=== PATIENT | female | born 1990 | race Caucasian/White ===

== ENCOUNTER 2024-01-30 08:33 | Emergency (ER) | payer OTHER, SELFPAY ==
[2024-01-30 08:38] VITALS: BP 112/69; PULSE 71; RESP 18; TEMP 36.1; O2SAT 100
[2024-01-30 08:50] LABS: BEDSIDEPREGUCG Negative
[2024-01-30 09:33] LABS: Color Urine Yellow (Yellow)
[2024-01-30 09:34] LABS: Add Urine Microscopic? NO; Appearance Urine Clear (Clear); Bilirubin Urine Negative (Negative); Blood Urine Negative (Negative); Glucose Urine UA Trace mg/dL (Negative); Ketones Urine Negative (Negative); Leukocyte Esterase Ur Negative LEU/UL (Negative); Nitrate Urine Negative (Negative); Protein Urine Negative (Negative); Urobilinogen Urine 0.2 mg/dL (<2.0)
--- NOTE | 2024-01-30 09:42 | ED.FEMALEGU ---
HPI - Female Genitourinary General Chief complaint: Urogenital-Female Stated complaint: UTI Time Seen by Provider: 01/30/24 08:59 Source: patient Mode of arrival: ambulatory Limitations: no limitations History of Present Illness HPI Narrative: This is a 33-year-old female who presents to the ED from [facility] for chief complaint of UTI symptoms. Reports symptoms started yesterday with urgency, burning. Some slight lower abdominal cramping noted as well. Denies vaginal symptoms worse concern for STD. States she has had UTIs in the past and this feels similar. denies any other medical history. Denies fevers, chills, nausea, vomiting, back pain or flank pain. Review of Systems Review of Systems: All systems as dictated in HPI Exam Narrative: GENERAL: Well-appearing, well-nourished, and in no acute distress. HEAD: Normocephalic, atraumatic. EYES: PERRLA and EOMI. ENT: Nares clear, no rhinorrhea or epistaxis. Mucous membranes moist. Oropharynx without tonsillar hypertrophy exudate or other lesions. NECK: Supple. No adenopathy or masses. CHEST: No respiratory distress. Clear to auscultation. No wheezes rales or rhonchi HEART: Regular rate and rhythm. No murmur heard. Normal peripheral pulses. ABDOMEN: Soft, nontender, nondistended, normal active bowel sounds. MSK: Normal range of motion. No edema. SKIN: Warm, dry, no rash. NEURO: Alert and oriented x4. No focal deficits. PSYCH: Normal mood and affect. Course Vital Signs Vital signs: Vital Signs Temperature 97 F L 01/30/24 08:38 Pulse Rate 71 01/30/24 08:38 Respiratory Rate 18 01/30/24 08:38 Blood Pressure 112/69 01/30/24 08:38 Pulse Oximetry 100 01/30/24 08:38 Oxygen Delivery Room Air 01/30/24 08:38 Temperature 97 F L 01/30/24 08:38 Pulse Rate 71 01/30/24 08:38 Respiratory Rate 18 01/30/24 08:38 Blood Pressure 112/69 01/30/24 08:38 Pulse Oximetry 100 01/30/24 08:38 Oxygen Delivery Room Air 01/30/24 08:38 MDM - Female Genitourinary MDM Narrative Medical decision making narrative: this is a 33-year-old female who presents to the ED for chief complaint of urinary burning and urgency. Vitals are normal. Exam is benign overall. No abdominal or flank tenderness. No fevers to indicate pyelonephritis. Urinalysis shows trace glucose but no other abnormal findings. Patient will be given azo for urinary symptom relief. Encouraged follow-up with PCP on this issue. She is understanding and agreeable with plan for discharge at this time. Return precautions given Lab Data Labs: Lab Results 01/30/24 01/30/24 Range/Units 08:42 08:48 Urine Color Yellow (Yellow) Urine Appearance Clear (Clear) Urine pH 7.0 (5.0-9.0) Ur Specific [place] 1.020 (1.001-1.035) Urine Protein Negative (Negative) mg/dL Urine Glucose (UA) Trace H (Negative) mg/dL Urine Ketones Negative (Negative) mg/dL Ur Blood (Man) Negative (Negative) Urine Nitrate Negative (Negative) Urine Bilirubin Negative (Negative) Urine Urobilinogen 0.2 (<2.0) mg/dL Leukocyte Esterase Rfl Negative (Negative) QING/UL POC Urine HCG, Qual Negative Discharge Plan Discharge Clinical Impression: Urinary urgency Patient Disposition: Home, Self-Care Condition: Stable Instructions: Antibiotic Form Additional Instructions: Your exam today is reassuring. No evidence of UTI on the urinalysis. Please take azo for relief and follow-up with PCP on this issue. If you have any new or worsening symptoms please return to the ER for further evaluation. Prescriptions: New phenazopyridine [Pyridium] 100 mg tablet 100 mg PO TID PRN (Reason: pain) Qty: 6 0RF Follow-up/Referrals: PHYSICIAN,PAPER COUNTER [Primary Care Provider] - Time of Disposition: 09:48
== END 2024-01-30 09:55 | disposition home or self-care (01) ==
PROVIDERS: Student in an Organized Health Care Education/Training Program; Emergency Provider Physician Assistant
DX: R39.15 Urgency of urination (principal)
CPT/HCPCS: 81003; 81025; 99283